=== PATIENT | female | born 2000 | race Asian ===

== ENCOUNTER 2023-08-29 23:11 | Emergency (ER) | payer MEDICAID, OTHER ==
[~2023-08-29] VITALS: Ht 157.5 cm; Wt 61.2 kg
[2023-08-29 23:43] VITALS: TEMP 98.6
[2023-08-30] MEDS ORDERED: LIDOCAINE 2% JEL UROJET 10 ML MM ONE (00:32)
[2023-08-30] MEDS: LIDOCAINE 2% JEL UROJET 10 ML MM ONE (00:39)
[2023-08-30] MEDS ORDERED: diphenhydrAMINE HCL 25 MG CAPSULE ONE (00:54)
[2023-08-30] MEDS ORDERED: IBUPROFEN 600 MG TABLET ONE (00:55)
[2023-08-30] MEDS: diphenhydrAMINE HCL 25 MG CAPSULE PO ONE (00:55)
[2023-08-30] MEDS: IBUPROFEN 600 MG TABLET PO ONE (00:55)
[2023-08-30] MEDS ORDERED: HYDR30CR79 TP (00:56)
[2023-08-30] MEDS ORDERED: ACET-2605 PO (00:56)
[2023-08-30] MEDS ORDERED: IBUP-1955 PO (00:56)
[2023-08-30 01:06] VITALS: BP 126/75; O2SAT 99
== END 2023-08-30 01:06 | disposition home or self-care (01) ==
LOC: ER 23:18
DX: K64.4 Residual hemorrhoidal skin tags (principal); Z79.899 Other long term (current) drug therapy; Z60.2 Problems related to living alone
CPT/HCPCS: 99284; Q0163; J3490